=== PATIENT | female | born 1960 | race Hispanic/Latino ===

== ENCOUNTER 2019-07-21 12:40 | Day surgery (SDC) | payer MEDICAID ==
[2019-07-21] MEDS ORDERED: fentaNYL 100 MCG/2 ML INJ IV PRN (13:01)
[2019-07-21] MEDS ORDERED: ALBUTEROL 2.5 MG/3 ML NEBU IH PRN (13:18)
[2019-07-21] MEDS ORDERED: ALBUTEROL 2.5 MG/3 ML NEBU IH ONE (13:19)
--- NOTE | 2019-07-21 13:22 | Anesthesia Consultation ---
Anesthesia Consult and Med Hx Date of service: 07/21/19 - Airway Anesthetic Teeth Evaluation: Dentures (upper) ROM Head & Neck: Adequate Mental/Hyoid Distance: Adequate Mallampati Class: Class III Intubation Access Assessment: Possibly Difficult (hx TMJ surgery - normal mouth opening and jaw protrusion) - Pulmonary Exam CTA: No (coarse breath sounds, modest improvement with cough) - Cardiac Exam Cardiac Exam: RRR - Pre-Operative Health Status ASA Pre-Surgery Classification: ASA3 Proposed Anesthetic Plan: General - Pulmonary Hx Smoking: Yes (1/2-1 PPD X 30 YRS) Hx Respiratory Symptoms: Yes (recent URI; completedABX course. No SOB, fever. ) SOB: No Home Oxygen Therapy: No Hx Sleep Apnea: No (NATASHA PRE SCREEN LOW RISK) - Cardiovascular System Hx Hypertension: No (HLD) Hx Heart Attack/AMI: No - Central Nervous System CVA: No Hx Back Pain: Yes (TO FANNY LEGS- LEFT LEG WORSE 2/2 spinal bifida occulta) Hx Psychiatric Problems: Yes (anxiety/depression) - Gastrointestinal Hx Gastroesophageal Reflux Disease: Yes (took pepcid this morning; hx esophageal stricture s/p dilations) - Endocrine Hx Renal Disease: No Hx Liver Disease: No Hx Insulin Dependent Diabetes: No Hx Non-Insulin Dependent Diabetes: No Hx Thyroid Disease: No - Hematic Hx Anemia: No - Other Systems Hx Substance Use: Yes (MARIJUANA WEEKLY) Hx Obesity: Yes (BMI 33.7) - Additional Comments Anesthesia Medical History Comments: Will administer albuterol neb preop.
--- NOTE | 2019-07-21 13:26 | Anesthesia Day of Surgery ---
Anesthesia Day of Surgery - Day of Surgery Patient Examined: Yes Patient H&P Reviewed: Yes Patient is NPO: Yes
[2019-07-21] MEDS ORDERED: MIDAZOLAM 2 MG/2 ML INJ IV NR (14:00)
[2019-07-21] MEDS ORDERED: LACTATED RINGERS 1,000 ML IV SCH (14:00)
--- NOTE | 2019-07-21 14:51 | Short Stay Summary ---
Short Stay Documentation Date of service: 07/21/19 - History H&P: obtained from office - Allergies and Medications Current Medications: Allergies Penicillins Allergy (Severe, Verified 07/21/19 13:36) Anaphylaxis erythromycin base Allergy (Intermediate, Verified 07/21/19 13:36) Hives CAUSES HIVES & RASH Sulfa (Sulfonamide Antibiotics) Allergy (Intermediate, Verified 07/21/19 13:36) Hives morphine Adverse Reaction (Intermediate, Verified 03/26/19 12:03) Vomiting Home Medications Medication Instructions Recorded Confirmed Last Taken Type Gabapentin 900 mg PO DAILY 03/26/19 07/17/19 07/20/19 History Prozac 80 mg PO DAILY 03/26/19 07/21/19 07/21/19 08:00 History SEROquel 200 mg PO HS 03/26/19 07/17/19 07/20/19 History Simvastatin 20 mg PO DAILY 03/26/19 07/21/19 07/20/19 History DOXYCYCLINE Hyclate 1 tab PO BID 07/17/19 07/21/19 07/20/19 History Famotidine [Pepcid] 20 mg PO BID 07/17/19 07/21/19 07/21/19 08:00 History Active Medications Albuterol (Proventil) 2.5 mg IH PREOP PRN PRN Reason: Wheezing Last Admin: 07/21/19 13:20 Dose: 2.5 mg Documented by: Fentanyl (Sublimaze) 50 mcg IV Q5MIN PRN PRN Reason: Pain , Severe (7-10) Lactated Ringer's (Lactated Ringers) 1,000 mls @ 100 mls/hr IV DIRECT SNEHA Last Admin: 07/21/19 13:35 Dose: 100 mls/hr Documented by: Levofloxacin/Dextrose (Levaquin 500mg/100ml) 500 mg in 100 mls @ 100 mls/hr IV PREOP NR; Protocol Stop: 07/21/19 23:00 Midazolam HCl (Versed) 2 mg IV PREOP NR Stop: 07/21/19 23:59 Last Admin: 07/21/19 13:37 Dose: 2 mg Documented by: - Brief post op/procedure progress note Date of procedure: 07/21/19 Pre-op diagnosis: right hydro / uret stone Post-op diagnosis: same Anesthesia: GETA Findings: right distal uret stone, hydro, uret narrow Surgeon: BERNA ZHAO Estimated blood loss: minimal Condition: stable - Hospital course Hospital course: orpac[facility]ome - Disposition Condition at discharge: Good Disposition: DC-01 TO HOME OR SELFCARE Short Stay Discharge Plan Activity: advance as tolerated Diet: advance as tolerated Follow up with: BERNA ZHAO MD [Staff Physician] - 10 Days
[2019-07-21] MEDS ORDERED: fentaNYL 100 MCG/2 ML INJ ONE (14:59)
[2019-07-21] MEDS ORDERED: PROPOFOL 200 MG/20 ML VIAL IV ONE (14:59)
[2019-07-21] MEDS ORDERED: WATER FOR IRRIG STERILE 1,500 ML BOTTLE IR ONE (16:12)
[2019-07-21] MEDS ORDERED: LIDOCAINE MPF (2%) 20 MG/1 ML VIAL 5 ML ONE (16:13)
[2019-07-21] MEDS ORDERED: dexAMETHasone 20 MG/5 ML VIAL ONE (16:13)
[2019-07-21] MEDS ORDERED: ONDANSETRON 4 MG/2 ML INJ ONE (16:13)
--- NOTE | 2019-07-21 17:04 | Fluoroscopy Report ---
Bilateral retrograde pyelography INDICATION: Kidney stone FINDINGS: 9 views obtained from C-arm exam in the OR show cannulation of the left ureteral orifice wi th contrast injection. The left ureter and left intrarenal collecting system appear normal. Small rg ling defects at the left UPJ do not persist and appear to be air bubbles. Subsequent cannulation of t he right ureter however shows the ureter dilated down to the right iliac vessels. There is subsequent placement of guidewire and right double-J stent appearing to be in good position. There is dilated r ight renal pelvis and mild right pyelocaliectasis as well. Total fluoroscopic time was 2.7 minutes. Signer Name: Inocencio Washburn MD Signed: 07/21/2019 5:00 PM Workstation Name: [id number]
[2019-07-21 17:31] VITALS: BP 136/74
--- NOTE | 2019-07-21 20:07 | Post Anesthesia Evaluation ---
- Post Anesthesia Evaluation Patient Participated: Yes Airway Patent: Yes Stable Respiratory Function: Yes Nausea/Vomiting: No Temp > 96.8F: Yes Pain Manageable: Yes Adequeate Hydration: Yes Anesthesia Complications: No Block Receding Appropriately: Not Applicable Patient on Ventilator: No
--- NOTE | 2019-08-04 14:08 | Operative Report ---
PREOPERATIVE DIAGNOSIS: Right distal ureteral stone, right hydronephrosis and right ureteral stone. POSTOPERATIVE DIAGNOSIS: Right distal ureteral stone, right hydronephrosis and right ureteral stone. ANESTHESIA: General. FINDINGS: Right distal ureteral stone, hydronephrosis, ureteral narrowing. SURGEON: Gavin Hernandez M.D. ESTIMATED BLOOD LOSS: Minimal. CONDITION: Stable. CLINICAL INDICATIONS: The patient was counseled on RCBA, antibiotics, sequential compression devices. The patient wanted to proceed. DESCRIPTION OF PROCEDURE: The patient was transferred to OR suite in supine position, anesthesia, dorsal lithotomy, prepped and draped in standard fashion. A 22-Sammarinese scope passed. Pancystoscopy, no tumors with 30 and 70 lens. Left retrograde pyelogram was within normal limits with 8-Sammarinese cone-tipped catheter. Right retrograde demonstrates some hydroureter. Glidewire passed up the right ureter into the right kidney under fluoroscopic visualization. A rigid ureteroscope was assembled, passed up the ureter. Stone identified, fragmented into smaller pieces. Some of the pieces were grasped, pulled out intact into the bladder. Next, the scope was passed up to the proximal ureter. No significant residual stones. Scope was withdrawn. Wire backloaded on the cystoscope. A 6-Sammarinese double-J stent was passed over the wire under direct and fluoroscopic visualization. When the wire and string was removed, there was nice proximal J, nice distal J within the bladder. Some of the fragments were sent for analysis. The patient was awakened and transferred to PACU in good and stable condition. JOB# [id number] ATS/NTS
== END 2019-07-21 12:41 | disposition home or self-care (01) ==
LOC: OR 12:40
PROVIDERS: ATTEND Urology
DX: N13.2 Hydronephrosis with renal and ureteral calculous obstruction (principal); E78.00 Pure hypercholesterolemia, unspecified; I10 Essential (primary) hypertension; E66.9 Obesity, unspecified; K21.9 Gastro-esophageal reflux disease without esophagitis; F32.9 Major depressive disorder, single episode, unspecified; F41.9 Anxiety disorder, unspecified; F17.210 Nicotine dependence, cigarettes, uncomplicated; Z80.8 Family history of malignant neoplasm of other organs or systems; Z79.899 Other long term (current) drug therapy; Z90.49 Acquired absence of other specified parts of digestive tract; Z98.890 Other specified postprocedural states; Z88.0 Allergy status to penicillin; Z88.5 Allergy status to narcotic agent; Z88.8 Allergy status to other drugs, medicaments and biological substances
CPT/HCPCS: 36415; 52332; 74420; 82365; C1758; C1769; C2617; J1100; J1956; J2250; J2405; J2704; J3010; J7120; Q9967